=== PATIENT | male | born 1955 | race Two or more races ===

== ENCOUNTER 2017-07-14 09:08 | Emergency (ER) | payer OTHER ==
[~2017-07-14] VITALS: Ht 177.8 cm; Wt 74.8 kg
--- NOTE | 2017-07-14 09:15 | NUR ---
[id number] FROM HOME: S/P POSSIBLE SYNCOPE WHILE HAVING A BOWEL MOVEMENT. NAD NOTED. VSS. DENIES HEAD TRAUMA. FAMILY MEMBERS AT BS. SEEN BY MD FOR EVAL. SAFETY AND COMFORT MEASURES PROVIDED. WILL MONITOR.
--- NOTE | 2017-07-14 09:20 | NUR ---
EKG DONE AT BS.
--- NOTE | 2017-07-14 10:05 | NUR ---
PT TAKEN TO CT.
[2017-07-14 10:07] LABS: BASOPHILS % (AUTO) 0.3 % (0.0-2.0); EOSINOPHILS # (AUTO) 0.1 /CMM (0.0-0.7); EOSINOPHILS % (AUTO) 1.6 % (0.0-6.0); HEMATOCRIT 43 % (39-51); HEMOGLOBIN 14.5 g/dL (13.5-17.5); LYMPHOCYTES # (AUTO) 1.3 /CMM (0.8-4.8); LYMPHOCYTES % (AUTO) 18.7 % (20.0-44.0); MEAN CORPUSCULAR HEMOGLOBIN 32 PG (26.0-33.0); MEAN CORPUSCULAR HGB CONC 34 g/dl (31.0-36.0); MEAN CORPUSCULAR VOLUME 95 fL (80-96); MONOCYTES # (AUTO) 0.4 /CMM (0.1-1.30); MONOCYTES % (AUTO) 5.5 % (2.0-12.0); NEUTROPHILS # (AUTO) 5.2 /CMM (1.8-8.9); NEUTROPHILS % (AUTO) 73.9 % (43.0-81.0); PLATELET COUNT (AUTO) 201 /CMM (150-450); RDW COEFFICIENT OF VARIATION 11.9 (11.5-15.0); RED BLOOD CELL COUNT(AUTO) 4.49 MIL/uL (4.5-6.0)
[2017-07-14 10:17] LABS: CALCIUM, SERUM 8.7 mg/dL (8.5-10.1); CARBON DIOXIDE 28 mmol/L (21-32); CHLORIDE 104 mmol/L (98-107); CREATININE 0.8 mg/dL (0.6-1.3); GLUCOSE 111 mg/dL (74-106); POTASSIUM 4.2 mmol/L (3.5-5.1); SODIUM SERUM 140 mmol/L (136-145); UREA NITROGEN, BLOOD 12 mg/dL (7-18)
[2017-07-14 10:22] LABS: ALANINE AMINOTRANSFERASE 17 U/L (12-78); ALBUMIN 3.4 g/dL (3.4-5.0); ALKALINE PHOSPHATASE 68 U/L (46-116); ASPARTATE AMINOTRANSFERASE 15 U/L (15-37); BILIRUBIN,DIRECT 0.1 mg/dL (0.0-0.2); BILIRUBIN,TOTAL 0.3 mg/dL (0.2-1.0); TOTAL PROTEIN, SERUM 6.5 g/dL (6.4-8.2)
[2017-07-14 10:32] LABS: TROPONIN I < 0.017 ng/mL (0.00-0.056)
[2017-07-14] MEDS ORDERED: LEVETIRACETAM (250 MG) 250 MG TABLET PO ONE ×2 (11:00→11:10)
--- NOTE | 2017-07-14 11:20 | NUR ---
IV removed. Catheter intact and site benign. Pressure and 4x4 applied to site. No bleeding noted.
--- NOTE | 2017-07-14 11:47 | NUR ---
Patient discharged to home in stable condition. Written and verbal after care instructions given. Patient verbalizes understanding of instruction. Assisted by technical director to the car via wheelchair as requested by family.
[2017-07-14 11:49] VITALS: BP 126/69
== END 2017-07-14 11:50 | disposition home or self-care (01) ==
LOC: ER 09:13
DX: G40.909 Epilepsy, unspecified, not intractable, without status epilepticus (principal); R51 Headache; F17.200 Nicotine dependence, unspecified, uncomplicated; F32.9 Major depressive disorder, single episode, unspecified; E11.9 Type 2 diabetes mellitus without complications
CPT/HCPCS: 36415; 70450-TC; 80048-TC; 80076-TC; 80156-TC; 84484-TC; 85025-TC; A4606; Z7610